=== PATIENT | female | born 1955 | race Caucasian/White ===

== ENCOUNTER → 2016-12-20 | Outpatient (CLI) | payer BC ==
--- NOTE | 2016-12-21 08:25 | MM ---
Reason for exam: screening (asymptomatic). Last mammogram was performed 4 years and 4 months ago. History: Patient is postmenopausal. Physical Findings: A clinical breast exam by your physician is recommended on an annual basis and results should be correlated with mammographic findings. MG Screening Mammo w CAD Bilateral CC and MLO view(s) were taken. Prior study comparison: August 28, 2012, bilateral digital screening mammo w/CAD. July 17, 2008, mammogram, performed at [facility] [place]. The breast tissue is almost entirely fat. There is chronic nodularity in the right breast. No significant changes when compared with prior studies. ASSESSMENT: Benign, BI-RAD 2 RECOMMENDATION: Routine screening mammogram of both breasts in 1 year.
== END | disposition home or self-care (01) ==
LOC: RADMAMWWP 10:53
PROVIDERS: ATTEND Family Medicine
DX: Z12.31 Encounter for screening mammogram for malignant neoplasm of breast (principal)

== ENCOUNTER → 2025-03-10 | Outpatient (CLI) | payer MEDICARE ==
--- NOTE | 2025-03-11 11:14 | MM ---
Reason for Exam: Screening (asymptomatic). Last mammogram was performed 1 year(s) and 1 month(s) ago. Patient History: Menarche at age 18. Patient has no children. Postmenopausal. Risk Values: Jada 5 year model risk: 1.7%. NCI Lifetime model risk: 5.9%. Prior Study Comparison: 07/17/2008 Screening Mammogram, [facility]. 08/28/2012 Bilateral Screening Mammogram, [facility]. 12/20/2016 Bilateral Screening Mammogram, [facility]. 02/05/2024 Bilateral Screening Mammogram, [facility]. Tissue Density: There are scattered areas of fibroglandular density. Findings: Analyzed By CAD. There is no suspicious group of microcalcifications or new suspicious mass in either breast. Overall Assessment: Negative, BI-RAD 1 Management: Screening Mammogram of both breasts in 1 year. . Patient should continue monthly self-breast exams. A clinical breast exam by your physician is recommended on an annual basis. This exam should not preclude additional follow-up of suspicious palpable abnormalities. Note on Jada scores and lifetime risk: 1. A Jada score greater than 3% is considered moderate risk. If this is the case, consider specialist referral to assess eligibility for a risk reducing agent. 2. If overall lifetime risk for the development of breast cancer is 20% or higher, the patient may qualify for future screening with alternating mammogram and breast MRI. [facility], , 03/11/2025 11:11 AM. Electronically signed and approved by: Jax Vuong M.D.
== END | disposition home or self-care (01) ==
LOC: RADMAMWWP 14:11
PROVIDERS: ATTEND Family Medicine
DX: Z12.31 Encounter for screening mammogram for malignant neoplasm of breast (principal); R92.323 Mammographic fibroglandular density, bilateral breasts; Z78.0 Asymptomatic menopausal state
CPT/HCPCS: 77063; 77067

== ENCOUNTER 2025-04-13 09:05 | Day surgery (SDC) | payer BC, MEDICARE ==
[2025-04-10 09:50] VITALS: BMI 34.1
[2025-04-13] MEDS: IV FLUID CONTINUATION 1,000 ML IV ONE (09:51)
[2025-04-13 09:53] VITALS: TEMP 98
[2025-04-13] MEDS: LACTATED RINGERS 1,000 ML IV SCH (10:00)
[2025-04-13] MEDS ORDERED: PROPOFOL 10 MG/ML 20 ML VIAL IV ONE (10:29)
[2025-04-13] MEDS ORDERED: LIDOCAINE 2% (PF) 20 MG/ML 5 ML VIAL ONE (10:29)
--- NOTE | 2025-04-13 10:54 | P.PCN ---
Date of Procedure: 04/13/25 Preoperative Diagnosis: Screening Personal history of colon cancer Postoperative Diagnosis: Diverticulosis Procedure(s) Performed: Colonoscopy Anesthesia: MAC Surgeon: Martina Mccartney Pathology: none sent Condition: stable Disposition: same day Indications for Procedure: 69-year-old female presents today for screening colonoscopy. She has personal history of colon cancer and has had right hemicolectomy secondary to this about 3 years ago. Denies any blood in her stool. No active symptoms at this time. Risks, benefits and alternatives were provided prior to attending the endoscopy suite. Operative Findings: Significant amount of diverticulosis Description of Procedure: The patient was brought to the endoscopy suite and placed in left lateral decubitus position and adequate sedation was achieved using conscious sedation. Digital rectal exam was performed and mild internal hemorrhoids were palpated. An endoscope was then placed in the rectum and advanced to the ileocolic anastomosis. The prep was good. The colonoscope was then slowly withdrawn, examining for any mucosal abnormalities. The ileocolic anastomosis, transverse, descending and sigmoid colon were visualized adequately. Anastomosis was patent without any ulceration. No large neoplastic lesion noted. No evidence of polyps. Significant amount of diverticulosis noted in the descending and sigmoid colon. Hemostasis was maintained. Retroflexion was performed in the rectum and internal hemorrhoids. Excess air was removed, the colonoscope withdrawn and the procedure terminated. The patient was then transferred to the recovery unit in stable condition. Repeat colonoscopy should be performed in 2 years.
[2025-04-13 11:14] VITALS: BP 106/72; PULSE 73; RESP 16
== END 2025-04-13 11:39 | disposition home or self-care (01) ==
LOC: ORWHC2ENDO 09:05
PROVIDERS: ATTEND Surgery
DX: Z12.11 Encounter for screening for malignant neoplasm of colon (principal); K57.30 Diverticulosis of large intestine without perforation or abscess without bleeding; K64.8 Other hemorrhoids; E78.5 Hyperlipidemia, unspecified; Z79.899 Other long term (current) drug therapy; Z85.038 Personal history of other malignant neoplasm of large intestine; Z90.49 Acquired absence of other specified parts of digestive tract
CPT/HCPCS: J2704; J2003; G0105